=== PATIENT | male | born 1940 | race Caucasian/White ===

== ENCOUNTER 2018-04-22 11:36 | Emergency (ER) | payer MEDICARE ==
[2018-04-22 11:37] VITALS: BMI 34.2
--- NOTE | 2018-04-22 12:07 | C.PDOC ---
History Of Present Illness 77 y/o male with h/o urethral stenosis sent to ED from [facility] for evaluation of penile bleeding developed after patient pulled his catheter off prior to arrival. Pt denies any pain. Patient denies fever, chills, nausea, vomiting, back pain or any other complaints at this time. Pt poor historian. Time Seen by Provider: 04/22/18 11:37 Chief Complaint (Nursing): Male Genitourinary History Per: Patient History/Exam Limitations: no limitations Onset/Duration Of Symptoms: Days Current Symptoms Are (Timing): Still Present Past Medical History Reviewed: Historical Data, Nursing Documentation, Vital Signs Vital Signs: Last Vital Signs Temp 98.2 F 04/22/18 11:40 Pulse 89 04/22/18 13:21 Resp 16 04/22/18 13:21 BP 116/70 04/22/18 13:21 Pulse Ox 100 04/26/18 17:31 - Medical History PMH: Arthritis, Benign Prostatic Hyperplasia, Diabetes, Hypothyroidism Surgical History: No Surg Hx Family History: States: No Known Family Hx - Social History Hx Alcohol Use: No Hx Substance Use: No Review Of Systems Constitutional: Negative for: Fever, Chills Gastrointestinal: Negative for: Nausea, Vomiting Genitourinary: Negative for: Dysuria Musculoskeletal: Negative for: Back Pain Skin: Negative for: Rash Physical Exam - Physical Exam Appears: Non-toxic, No Acute Distress Skin: Warm, Dry, No Rash Head: Atraumatic, Normacephalic Nose: Normal Oral Mucosa: Moist Neck: Normal ROM, Supple Chest: Symmetrical Cardiovascular: Rhythm Regular Respiratory: Normal Breath Sounds, No Rales, No Rhonchi, No Wheezing Gastrointestinal/Abdominal: Soft, No Tenderness, No Guarding, No Rebound Back: No CVA Tenderness, No Paraspinal Tenderness ED Course And Treatment - Laboratory Results Result Diagrams: 04/22/18 12:13 04/22/18 12:13 O2 Sat by Pulse Oximetry: 100 (RA) Pulse Ox Interpretation: Normal Progress Note: Spoke tp RN at [facility] who reports pt pulled out catheter and had penile bleeding afterwards. Otherwise notes pt is baseline, no other complaints. Pt was seen in ED by Dr Rodriguez, who evlauated pt at bedside and notes pt can be sent back [facility]. Labs were discussed with Dr Rodriguez. Labs : 07/09/17: H/h : 10.8/33.5. Today. h/h: 9.1/27.4. Bun 07/09/17: 17. Today 27. Copies of labs given for further evaluation to give to group home. Case discussed with Dr Mueller, agreed upon plan and discharge. Disposition - Disposition Referrals: Izabela Rodriguez MD [Staff Provider] - Disposition: HOME/ ROUTINE Disposition Time: 13:19 Condition: STABLE Additional Instructions: Follow up with PMD in 1-2 days. Return to ER if symptoms persist or worsen. Instructions: Blood in the Urine (Hematuria), Adult (DC) Forms: [employer] (Macanese) Print Language: AMHARIC - Clinical Impression Clinical Impression: Hematuria - PA / OWNER MANAGER / Resident Statement MD/DO has reviewed & agrees with the documentation as recorded. - Scribe Statement The provider has reviewed the documentation as recorded by the Sandyibroderick Oliva All medical record entries made by the Sandyibroderick were at my direction and personally dictated by me. I have reviewed the chart and agree that the record accurately reflects my personal performance of the history, physical exam, medical decision making, and the department course for this patient. I have also personally directed, reviewed, and agree with the discharge instructions and disposition.
[2018-04-22 12:16] LABS: BASO # 0.1 K/uL (0.0-0.2); EOS % 0.3 % (0.0-4.0); HEMOGLOBIN 9.1 g/dL (12.0-18.0); LYMPH # 1.1 K/uL (1.0-4.3); LYMPH % 13.1 % (20.0-40.0); MEAN CELL VOLUME 82.1 fL (80.0-94.0); MEAN CORPUSCULAR HEMOGLOBIN 27.2 pg (27.0-31.0); MEAN CORPUSCULAR HGB CONC 33.1 g/dL (33.0-37.0); MEAN PLATELET VOLUME 7.7 fL (7.2-11.7); MONO # 0.5 K/uL (0.0-0.8); MONO % 5.8 % (0.0-10.0); NEUT # 6.9 K/uL (1.8-7.0); NEUT % 79.8 % (50.0-75.0); NRBC % 0.1 % (0.0-2.0); RBC 3.34 Mil/uL (4.40-5.90); RED CELL DISTRIBUTION WIDTH 25.2 % (11.5-14.5); WHITE BLOOD COUNT 8.7 K/uL (4.8-10.8)
[2018-04-22 12:38] LABS: ALB/GLOB RATIO 0.9 (1.0-2.1); ALBUMIN 3.2 g/dL (3.5-5.0); CALCIUM 8.5 mg/dl (8.6-10.4); GFR AFRICAN-AMERICAN > 60; GFR NON-AFRICAN AMERICAN > 60
[2018-04-22 12:45] LABS: ALT/SGPT 61 U/L (21-72); AST/SGOT 46 U/L (17-59); BLOOD UREA NITROGEN 27 mg/dL (9-20)
[2018-04-22 12:51] VITALS: TEMP 98.2
[2018-04-22 13:21] VITALS: BP 116/70; PULSE 89; RESP 16
--- NOTE | 2018-04-25 02:39 | CON ---
DATE: 04/22/2018 UROLOGY CONSULTATION UROLOGY CONSULTATION REQUESTED BY: ER physician. UROLOGY CONSULTATION FILLED BY: Izabela Rodriguez MD REASON FOR CONSULTATION: Hematuria. HISTORY OF PRESENT ILLNESS: The patient is a 77-year-old male with hematuria. The patient is in otherwise fair health. The patient last week was admitted to [facility] with sepsis. It was found to have possible urosepsis. The patient was treated in the ICU. He had attempted catheterization in the ICU. However, the catheter could not be inserted. There were multiple courses for the inability to insert catheter including phimosis, meatal stenosis, and urethral stricture. On 04/18/2018, the patient underwent a cystoscopy and optical internal urethrotomy. The patient had a stricture dilated. The Dillon catheter was subsequently inserted. The patient thereafter was discharged and transferred to his rehab facility. Today, the patient pulled out his catheter. He has subsequently been having bleeding per urethra. There has been no recent fever or rigors. Occasional abdominal pain. No flank pain. The patient has fair appetite. The patient has had bowel movement. The patient is transferred now to the [facility] emergency room for further evaluation. PHYSICAL EXAMINATION: GENERAL: Patient is a well-developed, well-nourished elderly male. The patient is awake and alert. He is oriented to person. ABDOMEN: Soft, nontender, nondistended. Abdomen is protuberant. BACK: No CVA tenderness. GENITALIA: Without inflammation. Uncircumcised male. Normal meatus. LABORATORY DATA: Reviewed as well including chemistry and CBC. See attached reports. IMPRESSION: A 77-year-old male with history of urethral stricture, recent cystoscopy, and optical internal urethrotomy. Patient pulled the Dillon catheter out this morning, presumably with the balloon intact. Hematuria is likely due to urethral trauma. RECOMMENDATIONS AND PLAN: Monitor patient for voiding. Monitor urine output. I would recommend avoiding reinsertion of Dillon catheter at present. Rest of the catheter was put back and he might pull it out again. Hydration. Encourage the patient to void. Further therapy to follow according to the patient's clinical course. I discussed the findings with the nursing staff as well as with the patient's family. Izabela Rodriguez MD
[2018-04-26 17:30] VITALS: O2SAT 100
== END 2018-04-22 14:54 | disposition home or self-care (01) ==
LOC: C.ER 11:36
DX: R31.9 Hematuria, unspecified (principal)